=== PATIENT | male | born 1965 | race Caucasian/White ===

== ENCOUNTER 2016-11-09 09:01 | Emergency (ER) | payer BC ==
--- NOTE | ~2016-11-09 | ER ---
PATIENT'S NAME: FABIAN MORA [facility] AGE: 51 Y [address] ROOM: [place] [id number] LOCATION: [facility] ADMIT DATE: 11/09/2016 ER/Outpatient Report DISCHARGE DATE: 11/09/2016 FAMILY PHYSICIAN: Harris Willard MD ATTENDING PHYSICIAN: Genesis Ashraf Time of Arrival: 0901 hours. Time of Evaluation: 0929 hours. IDENTIFICATION: A 51-year-old male. CHIEF COMPLAINT: Fever and trouble urinating. HISTORY OF PRESENT ILLNESS: The patient has had pain and burning with urination, actually had difficulty even emptying his bladder Thursday night. T-max 102.4. He has had nausea, but no vomiting. ALLERGIES: NO KNOWN DRUG ALLERGIES. CURRENT MEDICATIONS: 1. Tamsulosin p.r.n. 2. Tylenol. PAST MEDICAL HISTORY: History of prostatitis, hospitalized 1 year ago with what sounds like maybe sepsis in [place]. SOCIAL HISTORY: The patient lives in [place]. Tobacco use 1 pack per day for 36 years, quit 1 year ago. Alcohol use, 3-4 beers per night. Drug use, denies. REVIEW OF SYSTEMS: All systems reviewed and negative other than what is noted in the HPI. PHYSICAL EXAMINATION: VITAL SIGNS: Weight 70.6 kg, height 5 feet 9 inches, blood pressure 130/60, pulse 98, respirations 16, temperature 97.6, sats 97% on room air. GENERAL: A 51-year-old male in no acute distress. HEENT: Unremarkable. LUNGS: Clear to auscultation. HEART: Regular rate and rhythm. PATIENT'S NAME: FABIAN MORA [facility] AGE: 51 Y [address] ROOM: [place], [place] [address] LOCATION: [facility] ADMIT DATE: 11/09/2016 ER/Outpatient Report DISCHARGE DATE: 11/09/2016 FAMILY PHYSICIAN: Harris Willard MD ATTENDING PHYSICIAN: Genesis Ashraf ABDOMEN: Soft, nondistended, nontender. Maybe some minimal suprapubic tenderness. No rebound or guarding. No CVA tenderness. SKIN: [place], warm, and dry. No lesions or rashes noted. NEURO: The patient is alert and oriented x4. Cranial nerves 2 through 12 grossly intact. Motor strength 5/5 throughout. Sensation is intact to light touch. No lower extremity edema. LABORATORY DATA AND X-RAYS: Hemoglobin 15.5, hematocrit 44.5, platelets 178, white count 12.4 with 79% neutrophils. Sodium 142, potassium 4.3, chloride 112, CO2 of 21, BUN 11, creatinine 1.0, blood sugar 101. Liver enzymes are normal. Lactate 1.1. Procalcitonin 1. UA, specific gravity 1.005, pH 6.5, full field of white cells, 20-50 red cells, 20-50 epithelial cells. Urine culture pending. IMPRESSION: Urinary tract infection. PLAN: Levaquin 750 mg daily. Push fluids and rest. Tylenol or ibuprofen for fever or pain. Follow up with primary care physician in 1-2 days to recheck. Follow up sooner if any problems or concerns. The patient understands and agrees, and all questions have been answered. GENESIS ASHRAF MD CAR/modl /[id number] d: 11/09/162125 t: 11/12/16 0642, OUTPATIENT REPORT
[2016-11-09 09:27] LABS: BILIRUBIN URINE NEGATIVE (NEGATIVE); BLOOD URINE 50 /UL (NEGATIVE); COLOR URINE YELLOW (YELLOW); GLUCOSE URINE NEGATIVE (NEGATIVE); KETONE URINE NEGATIVE (NEGATIVE); LEUKOCYTES URINE 500 /UL (NEGATIVE); NITRITE URINE NEGATIVE (NEGATIVE); PH URINE 6.5 (4.0-8.0); PROTEIN URINE NEGATIVE (NEGATIVE); SPEC GRAVITY URINE 1.005 (1.003-1.035); TURBIDITY URINE 1+ (CLEAR); UROBILINOGEN URINE NORMAL (NORMAL)
[2016-11-09 10:01] LABS: BASOPHIL % 0.2 %; EOSINOPHIL % 0.3 %; HEMATOCRIT 44.5 % (37.0-53.0); HEMOGLOBIN 15.5 g/dL (12.0-17.0); IMMATURE GRANULOCYTE # 0.1 K/uL (0.0-0.3); IMMATURE GRANULOCYTE % 0.5 %; LYMPHOCYTE # 1.5 K/uL (0.8-4.0); MCH 31.6 pg (27.0-34.0); MCHC 34.8 gm/dL (32.0-36.5); MCV 90.8 fl (83.0-98.0); MONOCYTE % 7.9 %; MPV 8.7 fl (9.4-12.4); NEUTROPHIL # (ANC) 9.8 K/uL (1.4-9.0); NEUTROPHIL % 79.1 %; NRBC % 0 /100WBC (0-0.00); PLATELET COUNT 178 K/uL (150-450); RDW-CV 12.3 % (11.9-14.6); WBC 12.4 K/uL (4.0-11.0)
[2016-11-09 10:16] LABS: ALBUMIN 3.8 gm/dL (3.5-5.0); ALK PHOS 72 IU/L (33-138); ALT 22 IU/L (12-78); BLOOD UREA NITROGEN 11 mg/dL (6-24); CALCIUM 8.9 mg/dL (8.5-10.5); CHLORIDE 112 mMol/L (96-110); CO2 21 mMol/L (22-32); ESTIMATED GFR (MDRD EQUATION) > 60; SODIUM 142 mMol/L (135-145); TOTAL BILIRUBIN 1.3 mg/dL (0.0-1.5); TOTAL PROTEIN 7.5 g/dL (6.0-8.4)
[2016-11-09 10:16] LABS: AMORPHOUS URINE 1+ (NEGATIVE); BACTERIA URINE RARE (NEGATIVE); EPITHELIAL URINE 20-50 #/HPF (NEGATIVE); MUCUS URINE 3+ (NEGATIVE); RBC URINE 20-50 #/HPF (NEGATIVE); WBC URINE FULL FIELD #/HPF (NEGATIVE)
[2016-11-09 10:17] LABS: ANION GAP 13.3 (10.0-19.0); AST 16 IU/L (10-40); POTASSIUM 4.3 mMol/L (3.7-5.1)
== END 2016-11-09 10:56 | disposition disaster alternative care site (69) ==
LOC: GMED 09:01
PROVIDERS: Family Medicine
DX: N39.0 Urinary tract infection, site not specified (principal); Z79.899 Other long term (current) drug therapy; Z87.891 Personal history of nicotine dependence